=== PATIENT | female | born 1970 | race Caucasian/White ===

== ENCOUNTER 2016-06-27 11:45 | Emergency (ER) | payer OTHER ==
[~2016-06-27] VITALS: Ht 157.5 cm; Wt 90.7 kg
[2016-06-27] MEDS ORDERED: JANUVIA50 MG PO (11:56)
[2016-06-27] MEDS ORDERED: TRAZODONE 150150 M1 PO (11:56)
[2016-06-27] MEDS ORDERED: GLUCOPHAGE1000 MG PO (11:56)
[2016-06-27] MEDS ORDERED: HYDROXYZINE HCL25 M1 PO (11:57)
[2016-06-27] MEDS ORDERED: LEVOTHYROXINE0.2 M1 PO (11:57)
[2016-06-27] MEDS ORDERED: LEXAPRO20 MG PO (11:57)
[2016-06-27] MEDS ORDERED: NEURONTIN600 MG PO (11:58)
[2016-06-27] MEDS ORDERED: ZANTAC 150MG T150 MG PO (11:58)
[2016-06-27] MEDS ORDERED: TOPAMAX 25 MG T25 M1 PO (11:58)
[2016-06-27 12:17] LABS: ABSOLUTE NEUTROPHILS 9.5 thou/uL (1.4-8.2); HEMATOCRIT 45.4 % (37.0-47.0); LYMPHOCYTES 16.9 % (24.0-44.0); MCH 31.4 pg (26.0-34.0); MCHC 33.1 g/dL (28.0-37.0); MCV 94.8 fL (80.0-100.0); MONOCYTES 6.4 % (1.0-8.0); PLATELET COUNT 289 thou/uL (150-400); POLYS 74.7 % (36.0-66.0); RBC 4.79 mil/uL (4.20-5.00); RDW 15.4 % (10.5-14.5); WBC 12.7 thou/uL (4.0-11.0)
[2016-06-27 12:20] LABS: CALCIUM 9.5 mg/dL (8.5-10.1); CREATININE 1.1 mg/dL (0.6-1.0); POTASSIUM 3.5 mmol/L (3.5-5.1)
[2016-06-27 12:25] LABS: MANUAL DIFF NO
[2016-06-27 12:32] LABS: URINE BILIRUBIN 1+ (Negative); URINE BLOOD NEGATIVE (Negative); URINE COLOR YELLOW; URINE GLUCOSE-RANDOM* NEGATIVE (Negative); URINE KETONES 1+ (Negative); URINE NITRITE NEGATIVE (Negative); URINE PROTEIN (DIPSTICK) TRACE (Negative); URINE SPECIFIC GRAVITY 1.025 (1.003-1.035); URINE UROBILINOGEN 0.2 E.U./dl (0.2-1.0)
[2016-06-27 12:34] LABS: ICTOTEST (BILI CONFIRMATORY) Negative (Negative)
[2016-06-27 12:40] LABS: AMP/METHAMP Negative (Negative); BARBITURATES Negative (Negative); BENZODIAZEPINES Negative (Negative); COCAINE Negative (Negative); METHADONE Negative (Negative); OPIATES Negative (Negative); PCP Negative (Negative); THC Negative (Negative)
[2016-06-27 12:51] VITALS: BP 119/68
[2016-06-27] MEDS ORDERED: HYDROCODONE-AP1 EAC6 PO (12:56)
== END 2016-06-27 13:11 | disposition home or self-care (01) ==
LOC: ER 11:45
PROVIDERS: Physician Assistant
DX: E11.42 Type 2 diabetes mellitus with diabetic polyneuropathy (principal); G89.29 Other chronic pain; R53.1 Weakness; J45.909 Unspecified asthma, uncomplicated; F12.10 Cannabis abuse, uncomplicated; Z88.6 Allergy status to analgesic agent; Z90.710 Acquired absence of both cervix and uterus

== ENCOUNTER 2017-04-01 17:17 | Emergency (ER) | payer OTHER ==
[~2017-04-01] VITALS: Ht 157.5 cm; Wt 81.7 kg
[~2017-04-01 17:17] MED LIST: GLUCOPHAGE1000 MG PO; HYDROCODONE-AP1 EAC6 PO; HYDROXYZINE HCL25 M1 PO; JANUVIA50 MG PO; LEVOTHYROXINE0.2 M1 PO; LEXAPRO20 MG PO; NEURONTIN600 MG PO; TOPAMAX 25 MG T25 M1 PO; TRAZODONE 150150 M1 PO; ZANTAC 150MG T150 MG PO
[2017-04-01] MEDS ORDERED: MOBIC15 MG PO (18:35)
[2017-04-01] MEDS ORDERED: HYDROCODON-ACE1 EAC7 PO (18:35)
== END 2017-04-01 18:54 | disposition home or self-care (01) ==
LOC: ER 17:17
DX: M46.1 Sacroiliitis, not elsewhere classified (principal); J45.909 Unspecified asthma, uncomplicated; E11.40 Type 2 diabetes mellitus with diabetic neuropathy, unspecified; Z90.710 Acquired absence of both cervix and uterus; F17.210 Nicotine dependence, cigarettes, uncomplicated; Z88.1 Allergy status to other antibiotic agents

== ENCOUNTER 2017-04-15 20:13 | Emergency (ER) | payer OTHER ==
[~2017-04-15] VITALS: Ht 157.5 cm; Wt 88.5 kg
[~2017-04-15 20:13] MED LIST changes: +HYDROCODON-ACE1 EAC7 PO; +MOBIC15 MG PO
[2017-04-15] MEDS ORDERED: NORFLEX100 MG PO (22:20)
== END 2017-04-15 22:36 | disposition home or self-care (01) ==
LOC: ER 20:13
DX: M54.5 Low back pain (principal); J45.909 Unspecified asthma, uncomplicated; E11.40 Type 2 diabetes mellitus with diabetic neuropathy, unspecified; F17.210 Nicotine dependence, cigarettes, uncomplicated; Z90.710 Acquired absence of both cervix and uterus; Z88.6 Allergy status to analgesic agent

== ENCOUNTER 2019-07-06 16:39 | Emergency (ER) | payer OTHER ==
[~2019-07-06] VITALS: Ht 157.5 cm; Wt 99.8 kg
[~2019-07-06 16:39] MED LIST changes: +NORFLEX100 MG PO
[2019-07-06 16:43] VITALS: BP 127/76
[2019-07-06] MEDS ORDERED: IBUPROFEN 600600 M1 PO (17:39)
[2019-07-06] MEDS ORDERED: AMOXICILLIN 50500 MG PO (17:39)
== END 2019-07-06 17:35 | disposition home or self-care (01) ==
LOC: ER 16:39
DX: K02.9 Dental caries, unspecified (principal); K03.81 Cracked tooth; E11.40 Type 2 diabetes mellitus with diabetic neuropathy, unspecified; J45.909 Unspecified asthma, uncomplicated; F17.210 Nicotine dependence, cigarettes, uncomplicated; Z90.710 Acquired absence of both cervix and uterus; Z91.048 Other nonmedicinal substance allergy status; Z79.899 Other long term (current) drug therapy

== ENCOUNTER 2020-05-25 11:07 | Emergency (ER) | payer OTHER ==
[~2020-05-25] VITALS: Ht 157.5 cm; Wt 90.7 kg
[~2020-05-25 11:07] MED LIST changes: +AMOXICILLIN 50500 MG PO; +IBUPROFEN 600600 M1 PO
[2020-05-25 11:49] LABS: ABSOLUTE NEUTROPHILS 10.7 thou/uL (1.4-8.2); BASOPHILS 0.6 % (0.0-2.0); EOSINOPHILS 1.2 % (0.0-3.0); HEMATOCRIT 41.1 % (37.0-47.0); HEMOGLOBIN 13.6 gm/dL (12.0-15.0); LYMPHOCYTES 12.1 % (24.0-44.0); MCH 32.5 pg (26.0-34.0); MCHC 33.1 g/dL (28.0-37.0); MCV 97.9 fL (80.0-100.0); MONOCYTES 4.9 % (1.0-8.0); PLATELET COUNT 349 thou/uL (150-400); POLYS 81.2 % (36.0-66.0); RDW 15.1 % (10.5-14.5); WBC 13.2 thou/uL (4.0-11.0)
[2020-05-25 11:58] LABS: ANION GAP 11 mmol/L (7-16); BUN 7 mg/dL (7-18); CALCIUM 8.5 mg/dL (8.5-10.1); CHLORIDE 106 mmol/L (98-107); CO2 28 mmol/L (21-32); CREATININE 0.8 mg/dL (0.6-1.0); GLUCOSE 90 mg/dL (74-106); POTASSIUM 4.3 mmol/L (3.5-5.1); SODIUM 145 mmol/L (136-145)
[2020-05-25 12:03] LABS: ALBUMIN 3.3 g/dL (3.4-5.0); DIRECT BILIRUBIN < 0.1 mg/dL (<0.1-0.2); LIPASE 60 U/L (73-393); SGOT 17 U/L (15-37); SGPT 19 U/L (14-59); TOTAL BILIRUBIN 0.3 mg/dL (0.2-1.0); TOTAL PROTEIN 6.7 g/dL (6.4-8.2)
[2020-05-25] MEDS ORDERED: BENTYL 10 MG CA10 M1 PO (12:39)
[2020-05-25] MEDS ORDERED: CARAFATE 1 GM TA1 G1 PO (12:39)
[2020-05-25] MEDS ORDERED: ONDANSETRON HCL4 M2 PO (12:39)
[2020-05-25 13:01] LABS: URINE BILIRUBIN NEGATIVE (Negative); URINE BLOOD TRACE (Negative); URINE CLARITY CLEAR; URINE COLOR YELLOW; URINE GLUCOSE-RANDOM* NEGATIVE (Negative); URINE KETONES NEGATIVE (Negative); URINE LEUKOCYTES-REFLEX NEGATIVE (Negative); URINE NITRITE-REFLEX NEGATIVE (Negative); URINE PROTEIN (DIPSTICK) NEGATIVE (Negative); URINE SPECIFIC GRAVITY 1.015 (1.005-1.035); URINE UROBILINOGEN 0.2 E.U./dl (0.2-1.0)
[2020-05-25 13:08] VITALS: BP 144/81
--- NOTE | 2020-05-25 13:08 | EKG ---
[place] [address] [facility] [place] [address] ELECTROCARDIOGRAM REPORT Name: KIMBERLYMARQUISECIARA GAR Room #: REG MIGUEL Nevarez#: [id number] Admission: 05/25/20 Attend Phys: Discharge: Date of : 68 Report #: [id number] [facility] ED Test Date: 2020-05-25 Test Time: 11:19:22 Pat Name: MARQUISE HARRIS Department: Room: Gender: F K 11 Principal: claude : 1970 Requested By: Cooper Watters Order Number: [id number] MD: Jimmy Gray Measurements Intervals [place] Rate: 73 P: 59 NM: 155 QRS: 55 QRSD: 81 T: 37 QT: 380 QTc: 419 Interpretive Statements Sinus rhythm Normal tracing No previous ECG available for comparison Electronically Signed On 05-25-2020 13:07:57 CDT by Jimmy Gray [email or web address] <ELECTRONICALLY SIGNED> By: Jimmy Gray MD, [facility] 05/25/20 1307 1119 1119 Jimmy Gray MD, FACC /EPI
== END 2020-05-25 13:17 | disposition home or self-care (01) ==
LOC: ER 11:07
PROVIDERS: Nurse Practitioner
DX: R10.13 Epigastric pain (principal); T39.315A Adverse effect of propionic acid derivatives, initial encounter; K29.70 Gastritis, unspecified, without bleeding; F17.210 Nicotine dependence, cigarettes, uncomplicated; G62.9 Polyneuropathy, unspecified; E11.9 Type 2 diabetes mellitus without complications; J45.909 Unspecified asthma, uncomplicated; Z79.899 Other long term (current) drug therapy; Z90.710 Acquired absence of both cervix and uterus; Y92.89 Other specified places as the place of occurrence of the external cause

== ENCOUNTER 2020-07-18 14:25 | Emergency (ER) | payer OTHER ==
[~2020-07-18] VITALS: Ht 157.5 cm; Wt 88.9 kg
[~2020-07-18 14:25] MED LIST changes: +BENTYL 10 MG CA10 M1 PO; +CARAFATE 1 GM TA1 G1 PO; +ONDANSETRON HCL4 M2 PO
[2020-07-18 14:56] VITALS: BP 123/84
[2020-07-18] MEDS ORDERED: OXYCODONE-APAP1 TAB PO (15:01)
[2020-07-18] MEDS ORDERED: GLYBURIDE 2.52.5 M1 PO (15:02)
[2020-07-18] MEDS ORDERED: PROZAC20 M1 PO (15:02)
[2020-07-18] MEDS ORDERED: LEVO-T100 MCG PO (15:02)
== END 2020-07-18 17:48 | disposition home or self-care (01) ==
LOC: ER 14:25
DX: S63.501A Unspecified sprain of right wrist, initial encounter (principal); J45.909 Unspecified asthma, uncomplicated; F17.210 Nicotine dependence, cigarettes, uncomplicated; Z90.710 Acquired absence of both cervix and uterus; W01.0XXA Fall on same level from slipping, tripping and stumbling without subsequent striking against object, initial encounter; Y93.89 Activity, other specified; Y92.89 Other specified places as the place of occurrence of the external cause; Y99.8 Other external cause status; E11.9 Type 2 diabetes mellitus without complications